=== PATIENT | female | born 1960 ===

== ENCOUNTER 2025-09-26 12:13 | Inpatient (IN) | payer OTHER ==
[~2025-09-26] VITALS: Ht 157.5 cm; Wt 62.6 kg
[2025-09-26] MEDS ORDERED: TENORMIN50 M1 PO (13:29)
[2025-09-26] MEDS ORDERED: PAXIL40 MG PO (13:30)
[2025-09-26] MEDS ORDERED: CLONAZEPAM0.5 MG PO (13:30)
[2025-09-26] MEDS ORDERED: HYDRODIURIL12.5 MG PO (13:30)
[2025-09-26] MEDS ORDERED: ROSUVASTATIN CAL5 MG PO (13:31)
[2025-10-03] MEDS ORDERED: CEFTRIAXONE SODIUM 2,000 MG VIAL ONE (08:09)
[2025-10-03] MEDS ORDERED: METRONIDAZOLE/SODIUM CHLORIDE 500 MG/100 ML PIGGYBACK IV ONE (08:09)
[2025-10-03] MEDS ORDERED: BUPIVACAINE HCL/Mpf 0.5% 10ML VIAL ONE (10:40)
[2025-10-03] MEDS ORDERED: LIDOCAINE HCL 1%/EPINEPHRINE 20ML VIAL IJ ONE (10:40)
[2025-10-03] MEDS ORDERED: ONDANSETRON HCL 2 MG/ML VIAL IV PRN (12:45)
[2025-10-03] MEDS ORDERED: MORPHINE SULFATE 4 MG/ML CARTRIDGE IV PRN (12:45)
[2025-10-03] MEDS ORDERED: RINGERS SOLUTION,LACTATED 1,000 ML IV SCH (12:45)
[2025-10-03] MEDS ORDERED: OxyCODONE HCL 5 MG TABLET (ROXICODONE) PO PRN (12:45)
[2025-10-03] MEDS ORDERED: SIMETHICONE 125 MG CAPSULE PO SCH (13:00)
[2025-10-03] MEDS ORDERED: HYOSCYAMINE SULFATE 0.125 MG TAB.SUBL SL SCH (13:00)
[2025-10-03] MEDS ORDERED: DIPHENHYDRAMINE HCL 50 MG/ML VIAL 1ML ONE (13:19)
[2025-10-03] MEDS ORDERED: ENALAPRILAT DIHYDRATE 1.25 MG/ML VIAL IV PRN (13:45)
[2025-10-03] MEDS ORDERED: DIPHENHYDRAMINE HCL 50 MG/ML VIAL 1ML IV ONE (13:45)
[2025-10-03] MEDS ORDERED: HYDROCORTISONE SODIUM SUCC/PF 100 MG VIAL IV ONE (13:45)
[2025-10-03] MEDS ORDERED: ACETAMINOPHEN 500 MG GEL..CAP PO SCH (14:00)
[2025-10-03 14:21] LABS: BASO % 0.3 % (0.1-1.2); EOS # 0.01 (0.04-0.54); EOS % 0.1 % (0.7-7.0); LYMPH # 1.90 (1.18-3.74); LYMPH % 10.3 % (19.3-53.1); MEAN PLATELET VOLUME 10.30 fl (9.4-12.4); MONO # 1.02 (0.24-0.82); MONO % 5.5 % (4.7-12.5); NEUT # 15.33 (1.56-6.13); NEUT % 83.4 % (34.0-71.1); RED CELL DISTRIBUTION WIDTH 12.4 % (11.6-14.4)
[2025-10-03] MEDS ORDERED: CELECOXIB 200 MG CAPSULE PO SCH (17:00)
[2025-10-03] MEDS ORDERED: GABAPENTIN 300 MG CAPSULE PO SCH (17:00)
[2025-10-03] MEDS ORDERED: METOCLOPRAMIDE HCL 5 MG/ML VIAL IV SCH (17:00)
[2025-10-03] MEDS ORDERED: ACETAMINOPHEN 500 MG GEL..CAP PO ONE (19:24)
[2025-10-03 19:40] VITALS: BP 96/52; O2SAT 94
[2025-10-03] MEDS ORDERED: FAMOTIDINE/PF 20 MG/2 ML VIAL IV PUSH SCH (21:00)
[2025-10-04 02:18] VITALS: BP 98/63; O2SAT 95
[2025-10-04 06:44] LABS: BASO % 0.5 % (0.1-1.2); EOS # 0.03 (0.04-0.54); EOS % 0.3 % (0.7-7.0); LYMPH # 2.31 (1.18-3.74); LYMPH % 21.6 % (19.3-53.1); MEAN PLATELET VOLUME 10.40 fl (9.4-12.4); MONO # 1.13 (0.24-0.82); MONO % 10.6 % (4.7-12.5); NEUT # 7.15 (1.56-6.13); NEUT % 66.7 % (34.0-71.1); RED CELL DISTRIBUTION WIDTH 12.7 % (11.6-14.4)
[2025-10-04 07:33] LABS: BUN CREA RATIO 25.0 (7.0-25.0); CREATININE SERUM 0.69 mg/dL (0.55-1.02); GFR 85.38; GLUCOSE FASTING 92.0 mg/dL (65-100); OSMOLALITY SERUM 286.0 MOSM/KG (275-295)
[2025-10-04 08:00] VITALS: BP 112/61; O2SAT 99
[2025-10-04] MEDS ORDERED: POTASSIUM CHLORIDE 20MEQ/100ML H2O PB IV NR (08:30)
[2025-10-04] MEDS ORDERED: ATENOLOL 50 MG TABLET PO SCH (09:00)
[2025-10-04] MEDS ORDERED: HYDROCHLOROTHIAZIDE 12.5 MG CAPSULE PO SCH (09:00)
[2025-10-04] MEDS ORDERED: LACTOBACILLUS ACIDOPHILUS 1 CAP CAP PO SCH (09:00)
[2025-10-04] MEDS ORDERED: LACTULOSE 20 G/30 ML BLIST.PACK PO SCH (09:00)
[2025-10-04] MEDS ORDERED: PAROXETINE HCL 20 MG TABLET PO SCH (09:00)
[2025-10-04] MEDS ORDERED: CETIRIZINE HCL 10 MG TABLET PO SCH (09:00)
[2025-10-04 12:30] VITALS: BP 91/55
[2025-10-04 12:57] VITALS: BP 109/65; O2SAT 95
[2025-10-04 16:00] VITALS: BP 92/51; O2SAT 100
[2025-10-04] MEDS ORDERED: ENOXAPARIN SODIUM 40 MG/0.4 ML SYRINGE SUBCUTANEO SCH (17:00)
[2025-10-04] MEDS ORDERED: ROSUVASTATIN CALCIUM 10 MG TABLET PO SCH (17:00)
[2025-10-05] VITALS: BP 123/74; O2SAT 100
[2025-10-05 06:52] LABS: BASO % 0.7 % (0.1-1.2); EOS # 0.24 (0.04-0.54); EOS % 3.0 % (0.7-7.0); LYMPH # 2.06 (1.18-3.74); LYMPH % 25.6 % (19.3-53.1); MEAN PLATELET VOLUME 10.70 fl (9.4-12.4); MONO # 0.55 (0.24-0.82); MONO % 6.8 % (4.7-12.5); NEUT # 5.12 (1.56-6.13); NEUT % 63.8 % (34.0-71.1); RED CELL DISTRIBUTION WIDTH 12.7 % (11.6-14.4)
[2025-10-05 08:00] LABS: BUN CREA RATIO 14.0 (7.0-25.0); CREATININE SERUM 0.57 mg/dL (0.55-1.02); GFR 106.45; GLUCOSE FASTING 94.0 mg/dL (65-100); OSMOLALITY SERUM 290.0 MOSM/KG (275-295)
[2025-10-05 08:12] VITALS: BP 126/74; O2SAT 100
[2025-10-05] MEDS ORDERED: ENOXAPARIN SODIUM 40 MG/0.4 ML SYRINGE SUBCUTANEO SCH (09:00)
[2025-10-05] MEDS ORDERED: POTASSIUM PHOS,M-BASIC-D-BASIC 15 MM in 0.9 % SODIUM CHLORIDE 250 ML IV ONE (10:00)
[2025-10-05] MEDS ORDERED: CETIRIZINE HCL 10 MG TABLET PO SCH (11:00)
[2025-10-05] MEDS ORDERED: POTASSIUM CHLORIDE 20MEQ/100ML H2O PB IV NR (12:00)
[2025-10-05 16:31] VITALS: BP 115/62; O2SAT 100
[2025-10-05] MEDS ORDERED: AMINO ACIDS/PROTEIN HYDROLYS 30 ML BLIST.PACK PO SCH (17:00)
== END 2025-10-05 18:58 | disposition home or self-care (01) | DRG 330 ==
LOC: O/R 10-03 07:00 → SURH 10-03 11:15
PROVIDERS: Internal Medicine Geriatric Medicine; ADMIT Colon & Rectal Surgery; ATTEND Colon & Rectal Surgery
PROC: 0DBP4ZZ Excision of Rectum, Percutaneous Endoscopic Approach (ICD-10-PCS; 2025-10-03)
PROC: 0DJD8ZZ Inspection of Lower Intestinal Tract, Via Natural or Artificial Opening Endoscopic (ICD-10-PCS; 2025-10-03)
PROC: 0DTN4ZZ Resection of Sigmoid Colon, Percutaneous Endoscopic Approach (ICD-10-PCS; principal; 2025-10-03 11:15)
DX: K57.32 Diverticulitis of large intestine without perforation or abscess without bleeding (principal); K92.1 Melena; K58.2 Mixed irritable bowel syndrome; K66.0 Peritoneal adhesions (postprocedural) (postinfection); E87.6 Hypokalemia; L27.0 Generalized skin eruption due to drugs and medicaments taken internally; T45.0X5A Adverse effect of antiallergic and antiemetic drugs, initial encounter; Y92.230 Patient room in hospital as the place of occurrence of the external cause